=== PATIENT | female | born 1990 | race Caucasian/White ===

== ENCOUNTER 2021-09-26 17:48 | Emergency (ER) | payer BC, SELFPAY ==
[2021-09-26 18:17] VITALS: BP 146/96; PULSE 87; RESP 18; TEMP 36.7; O2SAT 96; BMI 36.6
[2021-09-26] MEDS: ONDANSETRON ODT 4 MG TAB PO (18:40)
--- NOTE | 2021-09-26 18:40 | ED.GENADULT ---
HPI - General Adult General Chief complaint: Laceration/Wound Stated complaint: Fall w/head lac Time Seen by Provider: 09/26/21 18:18 History of Present Illness HPI narrative: This 31-year-old female comes in with a laceration to her scalp. Just prior to arrival she fell at home. She fell kind of backwards hitting her head on a [place]. She did not lose consciousness. She was able to get up and ambulate normally. She does have a 3 cm linear laceration toward the top of her head in the scalp. She does not report any other injury. She is unsure of her tetanus status but it is researched here and was last updated in 2015. Related Data Home Medications Medication Instructions Recorded Confirmed sertraline 100 mg tablet mg 09/26/21 Allergies Allergy/AdvReac Type Severity Reaction Status Date / Time No Known Drug Allergies Allergy Verified 09/26/21 18:17 Review of Systems Status of ROS: Reports: 10 or more systems reviewed and unremarkable except as noted in History and below Narrative: Constitutional: No fevers, no weight gain or loss. Eyes: No discharge. No vision changes. HENT: No congestion, no sore throat, no ear pain. Cardiovascular: No chest pain, no palpitations. Respiratory: No shortness of breath, no wheezes, no cough. Gastrointestinal: No abdominal pain, no vomiting, no diarrhea. Genitourinary: No dysuria, no hematuria. Musculoskeletal: Normal range of motion. Skin: No rashes, no pruritis. Neurological: No dizziness, weakness, sensory change, speech change. Endo/Heme/Allergies: No bruising or bleeding. No polydipsia. Pysch: no suicidality, no anxiety, no insomnia. All other systems reviewed and are negative. PFSH PFSH Social History Smoking Status: Never smoker Second hand tobacco smoke exposure: No How often do you have a drink containing alcohol: never How often do you have six or more drinks on one occasion: Never AUDIT-C Alcohol total score: 0 Non-prescribed substance use: denies use service: No Exam Narrative: Exam Narrative: Constitutional: Well-developed, well-nourished, no acute distress. HEENT: 4 cm linear laceration toward the top of the head in the scalp. Neck: Normal range of motion. Nontender. Supple. Heart: Intact distal pulses. Lungs: No chest discomfort. No wheezes, rhonchi, or rales. Abdomen: Nontender. Back: Normal range of motion. Extremities: Normal range of motion. No injury. Skin: Intact. No rash. Warm. No erythema or pallor. Neurologic: No altered sensation. No weakness. Alert and oriented. Psychiatric: No suicidality. No anxiety or depression. No insomnia. Nursing notes and vitals signs are reviewed. Const: Vital Signs, click to edit/add: Vital Signs - 24 hr 09/26/21 18:17 Temperature 98.1 F Pulse Rate [Right Pulse Oximeter] 87 Respiratory Rate 18 Blood Pressure [Ri ght Upper Arm] 146/96 H Pulse Oximetry 96 Course Vital Signs Vital signs: Initial Vital Signs Temperature 98.1 F 09/26/21 18:17 Temperature Source Temporal Artery Scan 09/26/21 18:17 Pulse Rate 87 09/26/21 18:17 Pulse Rhythm 09/26/21 18:17 Respiratory Rate 18 09/26/21 18:17 Blood Pressure 146/96 H 09/26/21 18:17 Blood Pressure Mean 112 09/26/21 18:17 Blood Pressure Position Sitting 09/26/21 18:17 Pulse Oximetry 96 09/26/21 18:17 Oxygen Delivery Method 09/26/21 18:17 Vital Signs Temperature 98.1 F 09/26/21 18:17 Pulse Rate 87 09/26/21 18:17 Respiratory Rate 18 09/26/21 18:17 Blood Pressure 146/96 H 09/26/21 18:17 Pulse Oximetry 96 09/26/21 18:17 Temperature 98.1 F 09/26/21 18:17 Pulse Rate 87 09/26/21 18:17 Respiratory Rate 18 09/26/21 18:17 Blood Pressure 146/96 H 09/26/21 18:17 Pulse Oximetry 96 09/26/21 18:17 Medical Decision Making MDM Narrative Medical decision making narrative: This patient comes in with a head injury as described above. She did not have loss of consciousness and is not showing any neurologic deficits. No imaging studies are indicated. After anesthesia with 1% lidocaine with epinephrine the wound was cleansed and then repaired with jorge. A total of 6 jorge were placed. Instructions were giving regarding wound care. Discharge Plan Discharge Clinical Impression: Laceration of scalp Patient Disposition: Home, Self-Care Condition: Stable Instructions: Laceration (ED) Additional Instructions: Scalp laceration. Follow up in clinic or urgent care in 5-7 days for staple removal. Prescriptions: No Action sertraline 100 mg tablet 0RF Label Comments: Take 1.5 Tablets (150 mg) by mouth every morning Stand Alone Forms: [employer] Info Instructions
== END 2021-09-26 19:37 | disposition home or self-care (01) ==
PROVIDERS: Emergency Provider Emergency Medicine Emergency Medical Services
DX: S01.01XA Laceration without foreign body of scalp, initial encounter (principal); W01.190A Fall on same level from slipping, tripping and stumbling with subsequent striking against furniture, initial encounter
CPT/HCPCS: 12002; 99283; A9270